=== PATIENT | female | born 1985 | race Caucasian/White ===

== ENCOUNTER 2017-02-14 14:01 | Observation (INO) ==
[2017-02-14 14:38] LABS: Basophils # 0.1 K/mcL (0.0-0.2); Basophils % 0.3 %; Eosinophils # 0.3 K/mcL (0.0-0.6); Eosinophils % 2.1 %; Hematocrit 41.9 % (35.3-44.9); Hemoglobin 14.3 g/dL (11.5-15.4); Immature Granulocytes % 0.6 % (0-4); Lymphocytes # 3.1 K/mcL (0.6-4.6); Lymphocytes % 21.7 %; Mean Corpuscular HGB Conc 34.1 g/dL (31.6-35.5); Mean Corpuscular Hemoglobin 33.1 pg (28.0-33.3); Mean Platelet Volume 11.2 fL (9.4-12.4); Monocytes % 7.3 %; Neutrophils # 9.7 K/mcL (1.6-8.9); Platelet Count 237 K/mcL (140-400); Red Blood Count 4.32 M/mcL (3.82-4.97); Red Cell Distribution Width 13.2 % (11.5-14.5)
[2017-02-14 14:43] LABS: Bilirubin,Urine Negative (Negative); Blood,Urine Negative (Negative); Clarity,Urine Clear (Clear); Color,Urine Yellow (Yellow); Glucose,Urine (UA) Normal (Normal); Ketones,Urine Trace mg/dL (Negative); Leukocyte Esterase,Urine Negative (Negative); Nitrite,Urine Negative (Negative); Protein,Urine 30 mg/dL (Neg-Trace); Specific Gravity,Urine > 1.030 (1.010-1.025); Urobilinogen,Urine Normal (Normal)
[2017-02-14 14:45] LABS: Amphetamine Screen,Urine Negative ng/mL (Cutoff=1000); Barbiturate Screen,Urine Negative ng/mL (Cutoff=200); Benzodiazepines Screen,Urine Negative ng/mL (Cutoff=200); Cannabinoid Screen,Urine Negative ng/mL (Cutoff = 50); Cocaine Screen,Urine Negative ng/mL (Cutoff= 300); Opiate Screen,Urine Negative ng/mL (Cutoff=300); Phencyclidine Screen,Urine Negative ng/mL (Cutoff=25)
[2017-02-14 14:46] LABS: Bacteria,Urine None Seen per hpf (None-Few); Hyaline Casts,Urine None Seen per lpf (None-Few); Squamous Epithelial Cell,Urine Many per lpf (None-Few)
[2017-02-14 14:55] LABS: Alanine Aminotransferase 17 Units/L (7-52); Aspartate Amino Transferase 17 Units/L (13-39); BUN/Creatinine Ratio 15 (6-26); Blood Urea Nitrogen 8 mg/dL (6-20); Lactate Dehydrogenase 192 Units/L (140-271); Uric Acid 4.8 mg/dL (2.3-7.6); eGFR For African Americans > 60 (> 60); eGFR For Non-African Americans > 60 (> 60)
[2017-02-14] MEDS ORDERED: Betamethasone Acet/SodPhos 6 MG/ML MDV IM SCH (15:15)
[2017-02-14 15:29] LABS: Creatinine,Urine 192 mg/dL; Protein/Creatinine Ratio,Urine 0.22 mg/mg (0.00-0.20)
--- NOTE | 2017-02-14 16:54 | OB/GYN Progress Note ---
Date of Encounter: 02/14/17 Time of Encounter: 16:52 - Assessment and Plan (1) Gestational [-induced] hypertension without significant proteinuria , complicating childbirth Current Visit: Yes Status: Acute Continues to have elevated BP in traige 144/89 146/96 152/105. PIH labs negative. Discussed with Dr. Lira, labtalol 200mg BID started in traige with good effect, betamethasone started, and scheduled for IOL on Sunday when she is 37 weeks due to medication controlled gestational hypertension. BP check and betamethasone tomorrow, US and PN Sunday already scheduled. (2) 36 weeks gestation of Current Visit: Yes Status: Acute Subjective - Subjective Interval history: 36+4 weeks gestation presents to triage from office for PIH evaluation. Patient had elevated blood pressure in office. Reports decreased, but adequate , movement and denies contractions, vaginal bleeding, leaking of fluids, headaches, visual changes, right upper quadrant pain. Lever, patient states she has felt off the last couple days. Antepartum ROS: movement normal, no loss of fluid, no vaginal bleeding, no contractions Objective - Vital Signs Vital Signs: Intake and Output 02/14/17 02/14/17 02/14/17 07:59 15:59 23:59 Other: Weight 82.4 kg Patient Weight 02/14/17 23:59 Weight 82.4 kg - Exam FHR: auscultation normal FHR comments: Reactive, baseline Auscultation: bilateral: normal Abdomen: Present: normal appearance, soft, gravid Uterus: Present: normal - Labs Labs: Abnormal lab results WBC 14.3 K/mcL (4.3-11.1) H 02/14/17 14:25 Neutrophils # 9.7 K/mcL (1.6-8.9) H 02/14/17 14:25 Creatinine 0.52 mg/dL (0.60-1.20) L 02/14/17 14:25 Ur Specific [place] > 1.030 (1.010-1.025) H 02/14/17 14:25 Urine Protein 30 mg/dL (Neg-Trace) H 02/14/17 14:25 Urine Ketones Trace mg/dL (Negative) H 02/14/17 14:25 Urine Microscopic RBC 5-15 per hpf (0-3) H 02/14/17 14:25 Urine Microscopic WBC 3-5 per hpf (0-3) H 02/14/17 14:25 Ur Squamous Epith Cells Many per lpf (None-Few) H 02/14/17 14:25 Protein/Creatinin Ratio 0.22 mg/mg (0.00-0.20) H 02/14/17 14:25
== END 2017-02-14 16:50 | disposition home or self-care (01) ==
LOC: 1NENULAB
PROVIDERS: ADMIT Obstetrics & Gynecology; ATTEND Obstetrics & Gynecology

== ENCOUNTER 2017-02-16 22:57 | Inpatient (IN) ==
[2017-02-16] MEDS ORDERED: Famotidine 20 MG/2 ML VIAL IVP PRN (23:07)
[2017-02-16] MEDS ORDERED: Naloxone 0.4 MG/ML INJ IVP PRN (23:07)
[2017-02-16] MEDS ORDERED: Ondansetron 4 MG/2 ML VIAL IVP PRN (23:07)
[2017-02-16] MEDS ORDERED: Ringers Solution, Lactated 1,000 ML ONE (23:07)
[2017-02-16] MEDS ORDERED: Metoclopramide 10 MG/2 ML VIAL IVP PRN (23:07)
[2017-02-16] MEDS ORDERED: Ringers Solution, Lactated 1,000 ML IVC SCH (23:15)
[2017-02-16] MEDS ORDERED: Acetaminophen 325 MG TABLET PO ONE (23:17)
[2017-02-16 23:23] LABS: Basophils % 0.2 %; Eosinophils % 0.1 %; Hematocrit 38.5 % (35.3-44.9); Hemoglobin 13.1 g/dL (11.5-15.4); Immature Granulocytes % 1.8 % (0-4); Lymphocytes # 3.7 K/mcL (0.6-4.6); Lymphocytes % 21.9 %; Mean Corpuscular Hemoglobin 33.9 pg (28.0-33.3); Mean Corpuscular Volume 99.7 fL (83.0-100.0); Monocytes # 1.7 K/mcL (0.0-1.3); Monocytes % 10.2 %; Neutrophils # 11.2 K/mcL (1.6-8.9); Nucleated Red Blood Cells 0.4 /100 WBC (0); Platelet Count 244 K/mcL (140-400); Red Blood Count 3.86 M/mcL (3.82-4.97); Red Cell Distribution Width 14.2 % (11.5-14.5); Segmented Neutrophils % 65.8 %
[2017-02-16 23:30] LABS: Amphetamine Screen,Urine Negative ng/mL (Cutoff=1000); Barbiturate Screen,Urine Negative ng/mL (Cutoff=200); Benzodiazepines Screen,Urine Negative ng/mL (Cutoff=200); Cannabinoid Screen,Urine Negative ng/mL (Cutoff = 50); Cocaine Screen,Urine Negative ng/mL (Cutoff= 300); Opiate Screen,Urine Negative ng/mL (Cutoff=300); Phencyclidine Screen,Urine Negative ng/mL (Cutoff=25)
[2017-02-16 23:37] LABS: Alanine Aminotransferase 15 Units/L (7-52); Aspartate Amino Transferase 12 Units/L (13-39); BUN/Creatinine Ratio 26 (6-26); Blood Urea Nitrogen 12 mg/dL (6-20); Lactate Dehydrogenase 162 Units/L (140-271); Uric Acid 5.9 mg/dL (2.3-7.6); eGFR For African Americans > 60 (> 60); eGFR For Non-African Americans > 60 (> 60)
[2017-02-17] MEDS: miSOPROStol 25 MCG TABLET VG PRN ×2 (01:15→05:17)
--- NOTE | 2017-02-17 04:52 | OB/GYN History & Physical ---
Date of Encounter: 02/17/17 Time of Encounter: 04:48 Assessment and Plan (1) 37 weeks gestation of Current visit: Yes Status: Acute (2) Gestational [-induced] hypertension without significant proteinuria , complicating childbirth Current visit: No Status: Acute Admit for IOL. Continue labetalol for BP management. Cytotec for IOL. Givens placed in cervix using sterile technique. Balloon inflated with 30ml sterile water. Pt tolerated well. Epidural when requested. Anticipate . History of Present Illness Chief complaint: gestational hypertension at 37 weeks HPI: Ms. Veras is a 31 year old female presenting at 37 weeks gestation for IOL due to gestational hypertension. She was found to have elevated blood pressures at her appointment on Wednesday 02/14 and was started on Labetalol. She has also been followed by MFM for a placental scott. This has been otherwise uncomplicated. She had a growth US yesterday that showed anterior placenta, CARLOS 10.3, EFW 5lbs 15oz (37%), BPP 8/8. Blood type O positive Rubella immune Serologies negative GBS negative Past Med Surg Social Fam HX - Past Medical History Medical history: non-contributory Psychiatric history: no psych history - Past Surgical History Surgical History: arthroscopy - Social History Smoking Status: Current every day smoker Smokeless Tobacco Status: No Alcohol use: none Drug use: other - Family History Mother History Unknown: Yes Family Member Ethnicity: Non- Living Status: Still Living Hx Family Cardiac Disorders: No Hx Family Respiratory Disorders: No Hx Family Cancer: No Hx Family GI Disorders: No Hx Family Endocrine Disorder: Yes (thyroid) Hx Family Neuromuscular Disorders: No Hx Family Neurologic Disorders: No Hx Family HEENT Disorders: No Hx Family Autoimmune Disorders: Yes (thyroid) Hx Family Medical Disorders: Yes (thyroid issues) Obstetrical History - Pregnancies : 1 Medications and Allergies Labetalol [Trandate] 200 mg PO BID #30 tablet 02/14/17 [Rx] Ranitidine HCl [Zantac] 150 mg PO PRN PRN 02/16/17 [History] 3 Allergy/AdvReac Type Severity Reaction Status Date / Time Penicillins Allergy Hives Verified 07/05/16 11:36 morphine AdvReac Irritable Verified 02/16/17 23:18 Review of System OB All systems PM: reviewed and no additional remarkable complaints except as stated Exam - Constitutional Constitutional: well developed, well nourished, no acute distress - HEENT HEENT: Mucus Membranes Moist - Lungs Respiratory exam: CTAB - Cardiovascular Cardiovascular exam: RRR, +S1, +S2 - Abdomen Abdomen: Present: gravid, non tender - Extremities Extremities exam: pedal edema (mild bilaterally) - Vulva Vulva: bilateral: normal - Vagina Vagina: Present: normal moisture - Cervix Dilation: 1 Effacement: 50 Station: -3 - Anus/Rectum Anus/Rectum: Present: normal perianal skin Results Result Diagrams: 02/16/17 23:00 02/16/17 23:00 Abnormal lab results WBC 17.0 K/mcL (4.3-11.1) H 02/16/17 23:00 MCH 33.9 pg (28.0-33.3) H 02/16/17 23:00 Neutrophils # 11.2 K/mcL (1.6-8.9) H 02/16/17 23:00 Monocytes # 1.7 K/mcL (0.0-1.3) H 02/16/17 23:00 Nucleated RBCs/100 WBC 0.4 /100 WBC (0) H 02/16/17 23:00 Creatinine 0.47 mg/dL (0.60-1.20) L 02/16/17 23:00 AST 12 Units/L (13-39) L 02/16/17 23:00 All other labs normal.
[2017-02-17] MEDS: *HR* Nalbuphine 20 MG/ML AMPUL IVP PRN ×2 (06:22→09:45)
[2017-02-17] MEDS ORDERED: Epidural Premix (fent/bupiv) 110 ML EP ONE ×3 (06:36→22:07)
--- NOTE | 2017-02-17 06:51 | Anesthesia Evaluation PreOp ---
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 Any Significant HX Other Medical History: Denies Any Significant HX Anesthesia History: No Prior Anesthetic Complications, Past Anesthesia : Yes (37wk) Alcohol Use: none Drug use: other Medications and Allergies Labetalol [Trandate] 200 mg PO BID #30 tablet 02/14/17 [Rx] Ranitidine HCl [Zantac] 150 mg PO PRN PRN 02/16/17 [History] 3 Allergy/AdvReac Type Severity Reaction Status Date / Time Penicillins Allergy Hives Verified 07/05/16 11:36 morphine AdvReac Irritable Verified 02/16/17 23:18 Anesthesia Results - Labs 02/16/17 23:00 02/16/17 23:00 Anesthesia Exam - HEENT Pupil (Motor): Pupils equal Mallampati: III Teeth: Normal Oral Opening: Greater than 3 - SENIOR LANDSCAPE ARCHITECT LOC: Oriented SENIOR LANDSCAPE ARCHITECT Motor: Normal RUE, Normal LUE, Normal RLE, Normal LLE, Normal Face SENIOR LANDSCAPE ARCHITECT Sensory: Normal: RUE, LUE, RLE, LLE, Face - Cardiac Rhythm: Regular Murmur: None - Pulmonary Breath Sounds: bilateral Clear Respiratory Effort: Symmetrical Anesthesia Assess/Plan ASA Score: 2 Modified [place] Scale for Level of Consciousness: Cooperative, oriented, and tranquil Anesthetic Plan: General, Regional Monitoring Plan: Standard Monitors
[2017-02-17] MEDS ORDERED: Nicotine 14 MG PATCH.TD24 TD SCH (09:00)
--- NOTE | 2017-02-17 09:43 | OB Labor Progress Note ---
Date of Encounter: 02/17/17 Time of Encounter: 09:40 Labor Progress Note - Subjective Subjective: Patient doing well. Discussed POC with patient. Patient denies any questions or concerns. - Cervix Cervix: 4/80/-1 - Heart Tones Heart Tones: 145 bpm moderate variability no decels noted - [place]: 2-3 min apart - Interventions Interventions: SVE, AROM moderate amount of clear fluid. IUPC placed without difficulty. Patient tolerated well. - Plan Plan: Continue labor management.
[2017-02-17] MEDS ORDERED: *HR* Ropivacaine/PF 0.2% 10 ML AMPUL EP ONE (09:50)
[2017-02-17] MEDS ORDERED: *HR* FentaNYL (PF) 100 MCG/2 ML VIAL EP ONE (09:50)
[2017-02-17] MEDS ORDERED: Epidural Premix (fent/bupiv) 110 ML EP SCH (10:00)
[2017-02-17] MEDS ORDERED: *HR* Ropivacaine/PF 0.2% 10 ML AMPUL ONE ×2 (10:36→22:11)
[2017-02-17] MEDS ORDERED: *HR* FentaNYL (PF) 100 MCG/2 ML VIAL ONE ×2 (10:36→22:11)
--- NOTE | 2017-02-17 11:04 | Anesthesia Procedures ---
Date of Encounter: 02/17/17 Time of Encounter: 11:02 Procedures: Anesthesia - Epidural/Spinal Patient ID/Chart reviewed: Yes Patient examined: Yes OB Eval: Gestational age: 37 OB Eval: : 1 OB Eval: Hx Para: 0 OB Eval: Dilated at (cm): 4 OB Eval: Contractions: Non-stressed pattern Consent Obtained: Yes Supplemental Oxygen: None/Room Air Site Prep: Aseptic Technique, Sterile prep and drape, 0.5% Chlorhexidine/Alcohol Patient position: upright Local Anesthetic: Lidocaine 1% Amount of Local Anesthetic used: 3 Touhy Needle Gauge: 18 Touhy Needle Depth (cm): 8 Catheter Depth at Skin (cm): 18 Test Dose (1.5% Lido + Epi): Volume given (mls): 3 Test Dose Result: Negative Loading Dose: Fentanyl (mcg): 100 Loading Dose: Other: ropivicaine 0.2% 10cc Loading Dose Administered: Thru Touhy Needle Infusion Med: 0.125% Bupivacaine w/ 2 mcg/ml Fentanyl Infusion Rate (mls/hr): 15 (PCEA 5 cc q 30") Catheter Secured in Place: Tegaderm Interspace Used: L3-L4 Loss of Resistance (ABRAHAM): Yes Blood: No CSF: No Paresthesia: No Procedure: aseptic, tolerated well, effective Vitals + FHT's: 132/84 76 16 fht 143
--- NOTE | 2017-02-17 13:21 | OB Labor Progress Note ---
Date of Encounter: 02/17/17 Time of Encounter: 13:19 Labor Progress Note - Subjective Subjective: Patient resting in bed. Denies any pain. - Cervix Cervix: 5/90/-1 - Heart Tones Heart Tones: 140 bpm moderate variability early decels noted. - [place]: 2.5-3.5 min apart - Interventions Interventions: SVE, repositioned to left side with peanut ball. - Plan Plan: Continue labor management
[2017-02-17] MEDS: Acetaminophen 325 MG TABLET PO PRN ×2 (14:33→23:47)
--- NOTE | 2017-02-17 18:16 | OB Labor Progress Note ---
Date of Encounter: 02/17/17 Time of Encounter: 18:14 Labor Progress Note - Subjective Subjective: Patient resting in bed. Patient denies any pain at this time. - Cervix Cervix: 5/100/0 - Heart Tones Heart Tones: 150 bpm moderate variability +15x15 accels early decels noted - [place]: 3-3.5 min apart - Interventions Interventions: SVE, repositioned - Plan Plan: Continue labor management.
--- NOTE | 2017-02-17 21:24 | OB Labor Progress Note ---
Date of Encounter: 02/17/17 Time of Encounter: 21:22 Labor Progress Note - Subjective Subjective: Patient resting in bed. Patient reports she feels some contractions but denies pain. - Cervix Cervix: 6/100/0 - Heart Tones Heart Tones: 150 bpm moderate variability - [place]: 3-4 min apart - Interventions Interventions: SVE, repositioned - Plan Plan: Continue labor management Due to elevated WBC on admission and ROM more than 12 hours will start Ancef 1 gram every 8 hours.
[2017-02-17] MEDS ORDERED: ceFAZolin 1,000 MG in Water for inj. (sterile) 10 ML IVP SCH (21:26)
--- NOTE | 2017-02-17 22:18 | Anesthesia Progress Note ---
Date of Encounter: 02/17/17 Time of Encounter: 22:16 Anesthesia Note - Note Note: 02/17/17 22:16 epidural rebolus f 100mcg fentanylor breakthrough pain 4 cc ropivicaine 0.2%
[2017-02-17] MEDS ORDERED: Oxytocin 20 units/ LR 1000 mL 20 UNIT/1,000 ML BAG IVC SCH (23:00)
[2017-02-18] MEDS ORDERED: Epidural Premix (fent/bupiv) 110 ML EP ONE (03:17)
[2017-02-18] MEDS ORDERED: *HR* Ropivacaine/PF 0.2% 10 ML AMPUL ONE (04:24)
--- NOTE | 2017-02-18 04:24 | OB Labor Progress Note ---
Date of Encounter: 02/18/17 Time of Encounter: 04:21 Labor Progress Note - Subjective Subjective: Patient reports feeling pain with contractions. - Cervix Cervix: 10/100/0 - Heart Tones Heart Tones: 155 bpm moderate variability +15x15 accels no decels noted - [place]: 2-6 min apart - Interventions Interventions: SVE, repositioned. Anesthesia notified and will come assess patient - Plan Plan: will try laboring down in pain gets under control by anesthesia due to contraction spacing and unable to start pitocin.
[2017-02-18] MEDS ORDERED: *HR* FentaNYL (PF) 100 MCG/2 ML VIAL ONE ×2 (04:25→10:00)
--- NOTE | 2017-02-18 04:36 | Anesthesia Progress Note ---
Date of Encounter: 02/18/17 Time of Encounter: 04:35 Anesthesia Note - Note Note: 02/18/17 04:35 epidural rebolus for breakthrough pain fentanyl 100mcg ropivicaine 0.2% 5 cc
[2017-02-18] MEDS ORDERED: Lidocaine 1% 20 ML MDV ONE (09:17)
[2017-02-18] MEDS ORDERED: Ondansetron 4 MG/2 ML VIAL ONE (10:24)
[2017-02-18] MEDS ORDERED: Dexamethasone 4 MG/ML VIAL ONE (10:24)
[2017-02-18] MEDS ORDERED: *HR* Rocuronium Bromide 50 MG/5 ML VIAL ONE (10:24)
[2017-02-18] MEDS ORDERED: *HR* Succinylcholine 200 MG/10 ML VIAL IVP ONE (10:24)
[2017-02-18] MEDS ORDERED: EPHEDrine 50 MG/ML VIAL ONE (10:29)
[2017-02-18 10:36] LABS: Basophils % 0.2 %; Eosinophils % 0.1 %; Immature Granulocytes % 0.9 % (0-4); Mean Corpuscular HGB Conc 33.8 g/dL (31.6-35.5)
[2017-02-18 10:38] LABS: Basophils # 0.1 K/mcL (0.0-0.2); Hemoglobin 9.8 g/dL (11.5-15.4); Lymphocytes # 2.7 K/mcL (0.6-4.6); Lymphocytes % 10.3 %; Mean Corpuscular Hemoglobin 33.7 pg (28.0-33.3); Mean Corpuscular Volume 99.7 fL (83.0-100.0); Mean Platelet Volume 11.3 fL (9.4-12.4); Monocytes # 2.3 K/mcL (0.0-1.3); Monocytes % 8.8 %; Neutrophils # 20.7 K/mcL (1.6-8.9); Nucleated Red Blood Cells 0.3 /100 WBC (0); Platelet Count 183 K/mcL (140-400); Red Blood Count 2.91 M/mcL (3.82-4.97); Red Cell Distribution Width 13.5 % (11.5-14.5); Segmented Neutrophils % 79.7 %
[2017-02-18] MEDS ORDERED: *HR* Oxytocin 10 UNIT/ML VIAL IM ONE (10:38)
[2017-02-18] MEDS ORDERED: Ringers Solution, Lactated 2,000 ML ONE (10:42)
[2017-02-18] MEDS ORDERED: Neostigmine Methylsulfate 3 MG/3 ML SYRINGE ONE (10:47)
[2017-02-18] MEDS ORDERED: *HR* HYDROmorphone (PF) 1 MG/ML SYRINGE ONE ×4 (10:48→12:10)
--- NOTE | 2017-02-18 11:28 | OB/GYN Procedure Note ---
Delivery - Delivery Date: 02/18/17 Provider: Gal Hwang Intrapartum events: febrile- temp >100.3 Delivery induction: AROM, zamoar, misoprostol Delivery monitor: external FHT, external uterine, internal uterine Anesthesia: epidural Estimated Blood Loss: 300 - Infant (s) A Delivery Date: 02/18/17 Infant Delivery Time: 09:02 Presentation: vertex Position: BIANCA Route of delivery: Gender: Female Viability: Viable Pounds: 5 Ounces: 7 Weight Gram: 2.475 kg at 1 minute: 8 at 5 mins: 9 Shoulder Dystocia: not encountered Specimens collected: cord blood Placenta: retained Cord: 3 umbilical vessels - Repair Episiotomy: none Laceration Description: Periurethral (left) - Complications Delivery comments: Patient is a 31-year-old 1 para 0 at 37 weeks who was brought in for induction of labor secondary to hypertension. Patient was brought to labor and delivery at 37 weeks and a Zamora catheter and Cytotec was placed. The patient progressed very slowly after 36 hours patient was complete patient had spiked fevers 203 temperature and Ancef was started. Patient pushed for approximately 2 hours finally delivered a viable female infant in left occiput anterior presentation at 0902. There was no nuchal cord, no meconium, was bulb suctioned on the abdomen. Apgars were 8 at 1 minute, 9 at 5, infant weight was 5 lbs[address] Hwang. Cord blood was collected we attempted to get the ascending out after approximately 30 minutes the placenta was not dislodging and the cord ruptured. It was too uncomfortable for the patient to attempt to do a manual extraction in the room inside this time we will go ahead and take her to the operating room. Please refer to the op note for the remaining portion of this. - Disposition Mom disposition: to OR [place] disposition: taken to nursery
--- NOTE | 2017-02-18 11:33 | Operative Note ---
Date of procedure: 02/18/17 Pre-op diagnosis: Status post vaginal delivery, retained placenta, active vaginal bleeding Post-op diagnosis: same (With placenta accreta) Procedure: Examination under anesthesia with attempted manual extraction of placenta unsuccessful, exploratory laparotomy and hysterotomy removal of retained placenta Complications: Inability to remove placenta manually conversion to hysterotomy Surgeon: Gal Hwang Estimated blood loss (cc): 1,100 Specimen: Attending placenta Condition: stable Disposition: other (Labor and delivery recovery) Procedure in Detail: Patient is a 31-year-old female who delivered vaginally without complications. Patient had what appeared to be retained placenta were unable to get the placenta to separate and the cord ruptured and we could not comfortably. No extraction in the room. It is advised that we will take her to the operating room and do a manual extraction in the operating room. Procedure: Patient was taken the operating room where general anesthesia was be adequate. She is placed in the dorsal lithotomy position prepped and draped in usual fashion. Timeout was then obtained. An attempt at manual extraction of the placenta was then performed unsuccessfully. Pitocin had been running and the uterus had contracted down and I could not get my fingers up to the fundus to remove the placenta. The uterus did not relax but the placenta was adherent suggestive of an accreta and really getting into significant amount of blood loss and I could not get the placenta to separate. It was decided this time we will convert over to laparotomy and hysterotomy and removed the placenta this way. The patient was taken out of the lithotomy position placed in the dorsal supine position prepped and draped in usual fashion. Another timeout was then obtained and a Pfannenstiel incision was made with scalpel carried down through the underlying tissue to fascia was identified. The fascia was nicked in the midline extended laterally with Lo scissors. The superior and inferior edges of fascia grasped tented up and dissected off the rectus muscle. Rectus muscles were in midline parietal peritoneum was identified tented up and entered sharply. This was extended superiorly and inferiorly with Metzenbaum scissors. An Akssi retractor was then placed in the abdomen for exposure and the ortez peritoneum was identified tented up and entered sharply this was extended laterally the bladder flap was created digitally. Using a scalpel we then incised in the lower uterine segment until we were in the lower uterine segment incision was extended laterally. It was at this point we were able to get into the fundus of the uterus and peeled the placenta out unfortunately in pieces due to an accreta. The uterus was then exteriorized using a banjo curet a D&C was performed removing the retained placenta. The cavity was evaluated and was noted this time there is no retained placenta or membranes. Patient lower uterine segment was then closed using 0 Vicryl in a running locking stitch by 2 layer closure with good hemostasis noted. The uterus was returned to the abdomen the gutters were cleaned of all clots and debris. The parietal peritoneum was brought together using an 0 Vicryl in a running stitch and the fascia was closed using a #1 statafix in a running stitch and the skin was closed using a 4-0 Vicryl in subcuticular manner. All needles lap and sponge counts were correct 3 she did receive preoperative antibiotics. She did get a alma dressing. Once we had the uterus out she was noted to have an odor coming from the uterus suggestive of a possible endometritis we will go ahead and start her on gentamicin and clindamycin and Ancef to cover potential infection. She is taken to the recovery room in stable condition.
[2017-02-18] MEDS ORDERED: Ondansetron 4 MG/2 ML VIAL IVP ONE (11:45)
[2017-02-18] MEDS ORDERED: *HR* Promethazine 25 MG/ML VIAL IVP PRN (11:45)
[2017-02-18] MEDS ORDERED: *HR* HYDROmorphone (PF) 1 MG/ML SYRINGE IVP PRN (11:45)
[2017-02-18] MEDS ORDERED: Ondansetron 4 MG/2 ML VIAL IVP PRN (13:47)
[2017-02-18] MEDS ORDERED: Famotidine 20 MG TABLET PO PRN (13:47)
[2017-02-18] MEDS ORDERED: *HR* HYDROmorphone 20 MG/20 ML PCA IVC PRN (13:47)
[2017-02-18] MEDS ORDERED: Metoclopramide 10 MG/2 ML VIAL IVP PRN (13:47)
[2017-02-18] MEDS ORDERED: Ringers Solution, Lactated 1,000 ML IVC SCH (13:47)
[2017-02-18] MEDS ORDERED: Sennosides 8.6 MG TABLET PO PRN (13:47)
[2017-02-18] MEDS ORDERED: Oxytocin 20 units/ LR 1000 mL 20 UNIT/1,000 ML BAG IVC SCH ×2 (13:47)
[2017-02-18] MEDS ORDERED: Simethicone 80 MG TAB.CHEW PO PRN (13:47)
[2017-02-18] MEDS ORDERED: CeFAZolin Premix DUPLEX 2,000 MG/50 ML BAG IVPB SCH (14:00)
[2017-02-18 14:25] LABS: Hematocrit 24.8 % (35.3-44.9); Red Cell Distribution Width 13.4 % (11.5-14.5)
[2017-02-18 14:26] LABS: Hemoglobin 8.4 g/dL (11.5-15.4); Mean Corpuscular HGB Conc 33.9 g/dL (31.6-35.5); Mean Corpuscular Hemoglobin 33.5 pg (28.0-33.3); Mean Corpuscular Volume 98.8 fL (83.0-100.0); Platelet Count 168 K/mcL (140-400); Red Blood Count 2.51 M/mcL (3.82-4.97)
[2017-02-18] MEDS: Gentamicin 340 MG in 0.9 % Sodium Chloride 100 ML IVPB SCH (15:43)
[2017-02-18] MEDS: Nicotine 14 MG PATCH.TD24 TD SCH (16:59)
[2017-02-18] MEDS: Clindamycin 900 MG/50 ML 900 MG/50 ML IV.SOLN IVPB SCH (16:59)
[2017-02-18 19:10] LABS: Hematocrit 22.1 % (35.3-44.9); Hemoglobin 7.5 g/dL (11.5-15.4)
[2017-02-18] MEDS ORDERED: 0.9 % Sodium Chloride 1,000 ML ONE (21:03)
[2017-02-18] MEDS: CeFAZolin Premix DUPLEX 2,000 MG/50 ML BAG IVPB SCH (22:12)
[2017-02-19] MEDS: Clindamycin 900 MG/50 ML 900 MG/50 ML IV.SOLN IVPB SCH ×3 (00:04→16:44)
[2017-02-19] MEDS: Ibuprofen 600 MG TABLET PO PRN ×4 (00:04→20:14)
[2017-02-19 06:29] LABS: Basophils % 0.1 %; Eosinophils % 0.1 %; Hematocrit 27.7 % (35.3-44.9); Immature Granulocytes % 0.6 % (0-4); Lymphocytes # 3.5 K/mcL (0.6-4.6); Lymphocytes % 14.1 %; Mean Corpuscular HGB Conc 33.2 g/dL (31.6-35.5); Mean Corpuscular Hemoglobin 31.3 pg (28.0-33.3); Mean Corpuscular Volume 94.2 fL (83.0-100.0); Mean Platelet Volume 11.1 fL (9.4-12.4); Monocytes # 1.5 K/mcL (0.0-1.3); Monocytes % 6.1 %; Neutrophils # 19.4 K/mcL (1.6-8.9); Nucleated Red Blood Cells 0.1 /100 WBC (0); Platelet Count 162 K/mcL (140-400); Red Blood Count 2.94 M/mcL (3.82-4.97); Red Cell Distribution Width 14.9 % (11.5-14.5)
[2017-02-19 06:32] LABS: Hemoglobin 9.2 g/dL (11.5-15.4)
[2017-02-19] MEDS: CeFAZolin Premix DUPLEX 2,000 MG/50 ML BAG IVPB SCH ×4 (07:33→23:23)
[2017-02-19] MEDS: Prenatal Vit/FA 1 EACH TABLET PO SCH (07:40)
--- NOTE | 2017-02-19 07:49 | OB/GYN Progress Note ---
Date of Encounter: 02/19/17 Time of Encounter: 07:40 - Assessment and Plan (1) Status post vaginal delivery Current Visit: Yes Status: Acute (2) Status post exploratory laparotomy Current Visit: Yes Status: Acute (3) Acute endomyometritis Current Visit: Yes Status: Acute (4) History of blood transfusion Current Visit: Yes Status: Acute (5) Acute blood loss anemia Current Visit: Yes Status: Acute Subjective - Subjective Interval history: Patient is feeling much better this morning did receive 2 units of blood last night due to being anemic from the surgery. Hemoglobin is stable this morning at 9.2 and white count is coming down. Did inform the patient would like to continue on another 24 hours of triple antibiotics due to the procedure we performed and the phaco we got into the uterus I did smell and noted suggestive she had an endometritis. She is wanting to get off the SHROUD LINE TIER pump and on bimanual pain medication. We will encourage the patient to ambulate today for repeat lock her IV and advanced diet the patient is stable tomorrow we will discuss discharging home. Patient reports: appetite normal, voiding normally, pain well controlled : doing well Objective - Vital Signs Latest vital signs: Vital Signs Temp Pulse Pulse Resp BP Pulse Ox 02/19/17 04:15 98.4 F 85 16 112/77 96 02/19/17 04:12 98.4 F 16 112/77 96 02/19/17 02:00 98.3 F 90 16 109/73 96 02/19/17 01:45 97.9 F 15 98/64 96 02/19/17 00:13 97.7 F 92 15 113/79 02/18/17 21:50 98.5 F 102 16 105/74 94 02/18/17 21:35 98.0 F 90 16 106/73 95 02/18/17 20:46 96 02/18/17 19:37 100 16 103/71 98 02/18/17 17:00 97.6 F 111 111 16 104/67 99 02/18/17 16:00 97.5 F L 96 14 93/60 02/18/17 15:00 97.8 F 100 14 117/65 96 02/18/17 14:30 97.2 F L 91 14 107/75 94 02/18/17 14:00 97.7 F 96 16 102/70 95 Intake and Output 02/18/17 02/18/17 02/19/17 15:59 23:59 07:59 Intake Total 50 / 50 550 / 550 1664 / 1664 Output Total 200 / 200 500 / 500 1400 / 1400 Balance -150 / -150 50 / 50 264 / 264 Intake: IV Fluids 50 / 50 150 / 150 50 / 50 Ancef Premix DUPLEX 2,000 mg In 50 / 50 50 / 50 50 ml @ 100 mls/hr IVPB Q8H [facility] Rx#:[id number] Cleocin Premix 900 MG/50 ML 900 50 / 50 mg In 50 ml @ 50 mls/hr IVPB Q8HR [facility] Rx#:[id number] Garamycin 340 MG In 0.9 % 100 / 100 Sodium Chloride 100 ML @ 100. 231 mls/hr IVPB Q24H [facility] Rx#: [id number] Oral 400 / 400 1040 / 1040 Blood Product 0 / 0 574 / 574 Rbcs Leuko Poor As-1 Unit 0 / 0 274 / 274 [id number] Rbcs Leuko Poor As-1 Unit 300 / 300 [id number] Output: Urine 1400 / 1400 Catheter 200 / 200 500 / 500 Other: Weight 89.528 kg 87.4 kg Patient Weight 02/19/17 23:59 Weight 87.4 kg - Exam Lungs: bilateral: normal Chest: Normal S1, Normal S2 Extremities: Present: normal Abdomen: Present: normal appearance, soft Incision: Present: normal, dry, dressed Uterus: Present: normal, firm - Labs Labs: Laboratory Results - last 24 hr 02/18/17 02/18/17 02/18/17 10:25 10:25 14:07 WBC 26.0 H D 29.4 H RBC 2.91 L 2.51 L Hgb 9.8 L D 8.4 L Hct 29.0 L 24.8 L MCV 99.7 98.8 MCH 33.7 H 33.5 H MCHC 33.8 33.9 RDW 13.5 13.4 Plt Count 183 168 MPV 11.3 11.0 Immature Gran % 0.9 Seg Neutrophils % 79.7 Lymphocytes % 10.3 Monocytes % 8.8 Eosinophils % 0.1 Basophils % 0.2 Neutrophils # 20.7 H Lymphocytes # 2.7 Monocytes # 2.3 H Eosinophils # 0.0 Basophils # 0.1 Nucleated RBCs/100 WBC 0.3 H Random Gentamicin Blood Type O POSITIVE Antibody Screen NEGATIVE Crossmatch See Detail 02/18/17 02/19/17 02/19/17 19:00 04:14 05:58 WBC 24.6 H RBC 2.94 L Hgb 7.5 L 9.2 L D Hct 22.1 L 27.7 L MCV 94.2 MCH 31.3 MCHC 33.2 RDW 14.9 H Plt Count 162 MPV 11.1 Immature Gran % 0.6 Seg Neutrophils % 79.0 Lymphocytes % 14.1 Monocytes % 6.1 Eosinophils % 0.1 Basophils % 0.1 Neutrophils # 19.4 H Lymphocytes # 3.5 Monocytes # 1.5 H Eosinophils # 0.0 Basophils # 0.0 Nucleated RBCs/100 WBC 0.1 H Random Gentamicin 1.5 Blood Type Antibody Screen Crossmatch
[2017-02-19] MEDS: *HR* OxyCODONE/APAP 5/325 TABLET PO PRN ×2 (08:56→10:19)
[2017-02-19] MEDS ORDERED: Aminoglycoside Consult 1 EACH MC ONE (12:34)
[2017-02-19] MEDS: Gentamicin 340 MG in 0.9 % Sodium Chloride 100 ML IVPB SCH (15:23)
[2017-02-19] MEDS: *HR* OxyCODONE/APAP 10/325 TABLET PO PRN ×2 (15:30→22:21)
[2017-02-19] MEDS: Nicotine 14 MG PATCH.TD24 TD SCH (16:05)
[2017-02-20] MEDS: Clindamycin 900 MG/50 ML 900 MG/50 ML IV.SOLN IVPB SCH (00:16)
[2017-02-20] MEDS: Ibuprofen 600 MG TABLET PO PRN ×2 (02:14→07:37)
[2017-02-20] MEDS: CeFAZolin Premix DUPLEX 2,000 MG/50 ML BAG IVPB SCH (06:21)
[2017-02-20] MEDS: *HR* OxyCODONE/APAP 10/325 TABLET PO PRN (06:21)
[2017-02-20 06:32] LABS: Basophils % 0.1 %; Eosinophils # 0.3 K/mcL (0.0-0.6); Eosinophils % 2.3 %; Hematocrit 23.3 % (35.3-44.9); Hemoglobin 7.8 g/dL (11.5-15.4); Immature Granulocytes % 0.7 % (0-4); Lymphocytes # 3.3 K/mcL (0.6-4.6); Lymphocytes % 22.1 %; Mean Corpuscular HGB Conc 33.5 g/dL (31.6-35.5); Mean Corpuscular Hemoglobin 31.8 pg (28.0-33.3); Mean Corpuscular Volume 95.1 fL (83.0-100.0); Mean Platelet Volume 11.4 fL (9.4-12.4); Monocytes # 1.2 K/mcL (0.0-1.3); Monocytes % 7.8 %; Nucleated Red Blood Cells 0.1 /100 WBC (0); Platelet Count 149 K/mcL (140-400); Red Blood Count 2.45 M/mcL (3.82-4.97); Red Cell Distribution Width 16.1 % (11.5-14.5)
[2017-02-20] MEDS: Prenatal Vit/FA 1 EACH TABLET PO SCH (07:38)
[2017-02-20 07:57] VITALS: BP 144/95
--- NOTE | 2017-02-20 08:08 | Discharge Summary ---
Date of Encounter: 02/20/17 Time of Encounter: 08:15 - Discharge Diagnosis (1) Acute endomyometritis Priority: Secondary Status: Acute Comments: Discharge home on antibiotics. Has been afebrile. White count has decreased (2) Gestational [-induced] hypertension without significant proteinuria , complicating childbirth Priority: Secondary Status: Acute Comments: Controlled with labetalol Parameters given. Discharge home with labetalol and blood pressure cuff kit follow up in office in one week for blood pressure check (3) Status post vaginal delivery Priority: Secondary Status: Acute Comments: Meeting milestones appropriately (4) Acute blood loss anemia Priority: Secondary Status: Acute Comments: VSS, asymptomatic Discharge home with ferrous sulfate BID (5) Status post exploratory laparotomy Priority: Secondary Status: Acute Comments: Meeting post-op milestones appropriately (6) 37 weeks gestation of Priority: Primary Status: Resolved - Discharge Medications Prescriptions: Ibuprofen [Motrin] 600 mg PO Q6HR PRN #30 tablet PRN Reason: Cramping OxyCODONE/APAP 10/325 [Percocet 10/325 MG] 1 each PO Q6HR PRN #28 tablet PRN Reason: Severe Pain Blood Pressure Test Kit [Blood Pressure Kit] 1 each MC BID #1 kit Clindamycin HCl [Cleocin HCl] 300 mg PO TID #15 cap Docusate [Colace] 100 mg PO BID PRN 10 Days #20 capsule PRN Reason: constipation Ferrous Sulfate 325 mg PO BIDWM #60 tablet Labetalol [Trandate] 200 mg PO BID #60 tablet Home Medications: Ranitidine HCl [Zantac] 150 mg PO PRN PRN 02/16/17 [History] Blood Pressure Test Kit [Blood Pressure Kit] 1 each MC BID #1 kit 02/20/17 [Rx] Clindamycin HCl [Cleocin HCl] 300 mg PO TID #15 cap 02/20/17 [Rx] Docusate [Colace] 100 mg PO BID PRN 10 Days #20 capsule 02/20/17 [Rx] Ferrous Sulfate 325 mg PO BIDWM #60 tablet 02/20/17 [Rx] Ibuprofen [Motrin] 600 mg PO Q6HR PRN #30 tablet 02/20/17 [Rx] Labetalol [Trandate] 200 mg PO BID #60 tablet 02/20/17 [Rx] OxyCODONE/APAP 10/325 [Percocet 10/325 MG] 1 each PO Q6HR PRN #28 tablet [Rx] Vit/FA 1 each PO DAILY #0 tablet 02/20/17 [Rx] Allergies/Adverse Reactions: 3 Allergy/AdvReac Type Severity Reaction Status Date / Time Penicillins Allergy Hives Verified 07/05/16 11:36 morphine AdvReac Irritable Verified 02/16/17 23:18 Data Procedures and tests throughout hospitalization: Laboratory Tests 02/16/17 02/16/17 02/16/17 23:00 23:00 23:00 WBC 17.0 H RBC 3.86 Hgb 13.1 Hct 38.5 MCV 99.7 MCH 33.9 H MCHC 34.0 RDW 14.2 Plt Count 244 MPV 11.0 Immature Gran % 1.8 Seg Neutrophils % 65.8 Lymphocytes % 21.9 Monocytes % 10.2 Eosinophils % 0.1 Basophils % 0.2 Neutrophils # 11.2 H Lymphocytes # 3.7 Monocytes # 1.7 H Eosinophils # 0.0 Basophils # 0.0 Nucleated RBCs/100 WBC 0.4 H BUN 12 Creatinine 0.47 L Est GFR ( Amer) > 60 Est GFR (Non-Af Amer) > 60 BUN/Creatinine Ratio 26 Uric Acid 5.9 AST 12 L ALT 15 Lactate Dehydrogenase 162 Random Gentamicin Urine Opiates Screen Negative Ur Barbiturates Screen Negative Ur Phencyclidine Scrn Negative Ur Amphetamines Screen Negative U Benzodiazepines Scrn Negative Urine Cocaine Screen Negative U Marijuana (THC) Screen Negative Blood Type Antibody Screen Crossmatch 02/18/17 02/18/17 02/18/17 10:25 10:25 14:07 WBC 26.0 H D 29.4 H RBC 2.91 L 2.51 L Hgb 9.8 L D 8.4 L Hct 29.0 L 24.8 L MCV 99.7 98.8 MCH 33.7 H 33.5 H MCHC 33.8 33.9 RDW 13.5 13.4 Plt Count 183 168 MPV 11.3 11.0 Immature Gran % 0.9 Seg Neutrophils % 79.7 Lymphocytes % 10.3 Monocytes % 8.8 Eosinophils % 0.1 Basophils % 0.2 Neutrophils # 20.7 H Lymphocytes # 2.7 Monocytes # 2.3 H Eosinophils # 0.0 Basophils # 0.1 Nucleated RBCs/100 WBC 0.3 H BUN Creatinine Est GFR ( Amer) Est GFR (Non-Af Amer) BUN/Creatinine Ratio Uric Acid AST ALT Lactate Dehydrogenase Random Gentamicin Urine Opiates Screen Ur Barbiturates Screen Ur Phencyclidine Scrn Ur Amphetamines Screen U Benzodiazepines Scrn Urine Cocaine Screen U Marijuana (THC) Screen Blood Type O POSITIVE Antibody Screen NEGATIVE Crossmatch See Detail 02/18/17 02/19/17 02/19/17 19:00 04:14 05:58 WBC 24.6 H RBC 2.94 L Hgb 7.5 L 9.2 L D Hct 22.1 L 27.7 L MCV 94.2 MCH 31.3 MCHC 33.2 RDW 14.9 H Plt Count 162 MPV 11.1 Immature Gran % 0.6 Seg Neutrophils % 79.0 Lymphocytes % 14.1 Monocytes % 6.1 Eosinophils % 0.1 Basophils % 0.1 Neutrophils # 19.4 H Lymphocytes # 3.5 Monocytes # 1.5 H Eosinophils # 0.0 Basophils # 0.0 Nucleated RBCs/100 WBC 0.1 H BUN Creatinine Est GFR ( Amer) Est GFR (Non-Af Amer) BUN/Creatinine Ratio Uric Acid AST ALT Lactate Dehydrogenase Random Gentamicin 1.5 Urine Opiates Screen Ur Barbiturates Screen Ur Phencyclidine Scrn Ur Amphetamines Screen U Benzodiazepines Scrn Urine Cocaine Screen U Marijuana (THC) Screen Blood Type Antibody Screen Crossmatch 02/20/17 05:59 WBC 14.9 H RBC 2.45 L Hgb 7.8 L Hct 23.3 L MCV 95.1 MCH 31.8 MCHC 33.5 RDW 16.1 H Plt Count 149 MPV 11.4 Immature Gran % 0.7 Seg Neutrophils % 67.0 Lymphocytes % 22.1 Monocytes % 7.8 Eosinophils % 2.3 Basophils % 0.1 Neutrophils # 10.0 H Lymphocytes # 3.3 Monocytes # 1.2 Eosinophils # 0.3 Basophils # 0.0 Nucleated RBCs/100 WBC 0.1 H BUN Creatinine Est GFR ( Amer) Est GFR (Non-Af Amer) BUN/Creatinine Ratio Uric Acid AST ALT Lactate Dehydrogenase Random Gentamicin Urine Opiates Screen Ur Barbiturates Screen Ur Phencyclidine Scrn Ur Amphetamines Screen U Benzodiazepines Scrn Urine Cocaine Screen U Marijuana (THC) Screen Blood Type Antibody Screen Crossmatch Labs on day of discharge: Labs from last 24 hours 02/20/17 05:59 WBC 14.9 H RBC 2.45 L Hgb 7.8 L Hct 23.3 L MCV 95.1 MCH 31.8 MCHC 33.5 RDW 16.1 H Plt Count 149 MPV 11.4 Immature Gran % 0.7 Seg Neutrophils % 67.0 Lymphocytes % 22.1 Monocytes % 7.8 Eosinophils % 2.3 Basophils % 0.1 Neutrophils # 10.0 H Lymphocytes # 3.3 Monocytes # 1.2 Eosinophils # 0.3 Basophils # 0.0 Nucleated RBCs/100 WBC 0.1 H Date of admission: 02/16/17 22:57 Primary care physician: PCP NONE Consults: 02/19/17 18:43 Consult to Endoscope Technician (W&C) [CONS] Routine Reason For Exam: Reason for SW Consult: periods of crying feels overwhelmed Discharging clinician: Charo Treadwell Anticipated date of discharge: 02/20/17 - Patient Status Disposition: Home, Self-Care Condition: Good Functional capacity at discharge: independent ambulation Overall status at discharge: patient is progressing back to baseline - Discharge Instructions Follow Up With: NONE,PCP [Primary Care Provider] - Gal Hwang DO [Partnered Physician] - Additional Instructions: Instructed to check blood pressure 1 hr after taking labetaolol twice a day. Call office if blood pressure is greater than 160/100. - Diet and Activity Activity: increase activity as tolerated Diet: low salt diet Hospital Course Reason for admission: induction of labor Delivery: Episiotomy: none Laceration: none (exploratory laparotomy and hysterotomy removal of retained placenta) Other procedures: other (exploratory lapar) complications: other (anemia 2/2 blood loss) [place] baby: female Hospital course: Patient is a 31 year old female presented at 37 weeks gestation for IOL due to gestational hypertension. Patient was given an epidural and progressed to a without complications. Patient had retained placenta with cord ruptured. Patient was taken to the OR and examination under anesthesia with attempted manual extraction of placenta was unsuccessful, and exploratory laparotomy and hysterotomy were performed to remove retained placenta. Patient' s hemoglobin decreased to 7.5 and 2 units of PRBCs given. Patients hemoglobin stabilized and patient was sent home with ferrous sulfate supplements. Patient was also thought to have endometritis due to increase WBC and smell during surgery. Patient was started on Cefazolin and Clindamycin at 22:00 on 02/18. Patient will be given Clindamycin 500mg BID for a total of 7 days to complete antibiotic course. Patient's blood pressure remained elevated post- and patient was sent home with Labetalol 200mg BID and instructions for an office visit nurse check for BP next week. OARRS was checked and pain medication given for less than 7 days. F/u appointment scheduled with Dr. Hwang in 2 weeks. Patient understood instructions and all questions were answered. Time Attestation: Total time spent providing and/or coordinating discharge services: Exam - Constitutional Vitals: Temp Pulse Resp BP Pulse Ox 98.5 F 86 16 144/95 96 02/20/17 07:35 02/20/17 07:35 02/20/17 07:35 02/20/17 07:35 02/20/17 07:35 General appearance IM: A&O X 3, pleasant, no acute distress - Respiratory Respiratory exam: Present: CTAB - Cardiovascular Cardiovascular exam IM: Present: RRR - GI/Abdominal GI/Abdominal exam IM: normal bowel sounds Incision: normal, dry, intact, dressed (DELMA dressing) - Extremities Exam Extremities exam IM: Present: pedal edema - Neurological Exam Neurological exam: CN II-XII intact - Attending Attestation I examined this patient and my medical decision-making was reviewed with the Resident Physician. I agree with the documented findings, disposition and treatment plan as described. Manish Treadwell CNM
== END 2017-02-20 12:35 | disposition home or self-care (01) | DRG 767 ==
LOC: 1NENULAB 22:57 → 1NENUOBS 02-18 14:01
PROVIDERS: ADMIT Registered Nurse; ATTEND Registered Nurse

== ENCOUNTER 2018-11-07 05:33 | Observation (INO) ==
--- NOTE | 2018-11-07 06:13 | Emergency Department Note ---
Disposition Clinical Impression: Suicidal ideation Depression Qualifiers: Depression Type: other depression Qualified Code(s): F32.89 - Other specified depressive episodes Disposition: Admitted As Inpatient Condition: Fair Time of Disposition: 08:32 Psych HPI - General Chief Complaint: ED Psychiatric Symptoms Stated Complaint: SI Time Seen by Provider: 11/07/18 06:02 Source: patient, EMS Mode of arrival: ambulatory Limitations: no limitations Nursing Notes Reviewed: Yes Vital Signs Reviewed: Yes - History of Present Illness HPI Narrative: 33-year-old female presents with suicidal ideation. Patient reported history of depression for 2 years. She started Prozac 10 mg a day 3-1/2 months ago. She felt worsening depression in the past a few days. She thought of hurting herself. But she does not have current plan yet. Pt complaint: suicidal ideation - Related Data Home Medications Medication Instructions Recorded Confirmed FLUoxetine HCl [PROzac] 10 mg PO DAILY 11/07/18 11/07/18 Allergies Allergy/AdvReac Type Severity Reaction Status Date / Time Penicillins Allergy Hives Verified 11/07/18 03:22 morphine AdvReac Irritable Verified 11/07/18 03:22 Constitutional: Denies: fever, chills Eyes: Denies: eye pain ENT ED: Denies: ear pain Cardiovascular: Denies: chest pain Respiratory: Denies: cough Gastrointestinal: Denies: abdominal pain Genitourinary: Denies: urgency Musculoskeletal: Denies: back pain Integumentary: Denies: rash Neurological: Denies: headache Psychiatric: Reports: depression, suicidal thoughts. 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 - Social History Smoking Status: Current every day smoker Smokeless Tobacco Status: No Alcohol use: Reports: occasionally, recent Drug use: Reports: marijuana Physical Exam - General Limitations: no limitations General appearance: alert, anxious - Head Head exam: atraumatic - Eye Eye exam: Present: normal appearance - ENT ENT exam: normal exam - Neck Neck exam: Present: normal inspection - Chest Chest inspection: Present: normal inspection - Respiratory Respiratory exam: Present: normal lung sounds bilaterally - Cardiovascular Cardiovascular exam: Present: regular rate - Abdominal Exam Abdominal exam: Present: soft, Non-Tender - Extremities Exam Extremities exam: Present: normal inspection, full ROM. Absent: tenderness - Back Exam Back exam: Present: normal inspection, full ROM. Absent: tenderness - Neurological Exam Neurological exam: Present: alert, oriented X3, CN II-XII intact. Absent: motor sensory deficit - Psychiatric Psychiatric exam: Present: depressed (pt seems depressed, tearing when talking with me) - Skin Skin exam: Present: warm, intact Course Vital Signs Temperature 98.8 F 11/07/18 06:02 Pulse Rate 104 11/07/18 06:02 Respiratory Rate 20 11/07/18 06:02 Blood Pressure 122/78 11/07/18 06:02 O2 Sat by Pulse Oximetry 100 11/07/18 06:02 Temperature 98.8 F 11/07/18 06:02 Pulse Rate 104 11/07/18 06:02 Respiratory Rate 20 11/07/18 06:02 Blood Pressure 122/78 11/07/18 06:02 O2 Sat by Pulse Oximetry 100 11/07/18 06:02 Oxygen Delivery Oxygen Delivery Room Air Psych - MDM Narrative Medical decision making narrative: 33 year old female with history of depression presents with suicidal thought. Patient started Prozac 10 mg daily 3-1/2 month ago. Patient is tearing when talking. Patient has suicidal thought but no current plan. Pt is transferred from [place]. Labs completed. Patient is medical cleared. A 1 evaluation completed. Patient will be admitted to a 1A. Psychiatric Medical Clearance - Medical Clearance Checklist Medical History: No Social History Section defined Current Vitals: Last Vital Signs Temp 98.8 F 11/07/18 06:02 Pulse 104 11/07/18 06:02 Resp 20 11/07/18 06:02 BP 122/78 11/07/18 06:02 Pulse Ox 100 11/07/18 06:02 Statement of Medical Clearance: I have evaluated the patient, reviewed diagnostic information, and certify that the patient's medical condition is sufficiently stable that transfer to the psychiatric unit does not pose a significant risk of deterioration.
[2018-11-07] MEDS: Nicotine 21 MG PATCH.TD24 TD SCH (09:50)
[2018-11-07] MEDS ORDERED: Acetaminophen 325 MG TABLET PO PRN (10:35)
[2018-11-07] MEDS ORDERED: Haloperidol Lactate 5 MG/ML VIAL IM PRN (10:35)
[2018-11-07] MEDS ORDERED: traZODone 50 MG TABLET PO PRN (10:35)
[2018-11-07] MEDS ORDERED: *HR* LORazepam 1 MG TABLET PO PRN (10:35)
[2018-11-07] MEDS ORDERED: *HR* LORazepam 2 MG/ML VIAL IM PRN (10:35)
[2018-11-07] MEDS ORDERED: MOM Conc 10 ML UD.LIQ PO PRN (10:35)
[2018-11-07] MEDS ORDERED: Mag Hydrox/Al Hydrox/Simeth 30 ML UDC PO PRN (10:35)
[2018-11-07] MEDS: hydrOXYzine pamoate 25 MG CAPSULE PO PRN ×2 (12:06→20:42)
[2018-11-08 09:15] VITALS: BP 114/74
[2018-11-08] MEDS: hydrOXYzine pamoate 25 MG CAPSULE PO PRN (09:18)
[2018-11-08] MEDS: Nicotine 21 MG PATCH.TD24 TD SCH (09:18)
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
== END 2018-11-08 16:35 | disposition home or self-care (01) ==
LOC: 1ANU 05:33 → EMEROOARM 05:33 → 1ANU 11:08
PROVIDERS: ADMIT Psychiatry & Neurology Psychiatry; ATTEND Psychiatry & Neurology Psychiatry